=== PATIENT | female | born 1985 | race Caucasian/White ===

== ENCOUNTER 2019-04-19 12:49 | Outpatient (CLI) | payer BC, SELFPAY ==
--- NOTE | ~2019-04-19 | US_ITS ---
EXAMINATION: US pelvic complete w TV DATE: 04/19/2019 13:26 INDICATION: Displacement of intrauterine contraceptive the size Comparison:No prior studies for comparison. TECHNIQUE: Multiple transabdominal and endovaginal sonographic images of the pelvis performed. FINDINGS: The uterus measures 11.3 x 3.8 x 4.9 cm. IUD present in the endometrium. The endometrial co mplex measures 3 mm. The right ovary measures 2.5 x 1.9 x 2.8 cm and the left ovary measures 3.2 x 1.4 x 2.4 cm. There ar e small follicles in each ovary. There is no free fluid in the pelvis. There are no abnormal masses seen on either side. IMPRESSION: 1. Unremarkable pelvic ultrasound. IUD present in the endometrium. Reviewed, dictated and finalized at location B. [employer]
== END 2019-04-19 12:50 ==
LOC: MICIMG 12:50
PROVIDERS: Visit Provider Obstetrics & Gynecology
DX: T83.32XA Displacement of intrauterine contraceptive device, initial encounter (principal)
CPT/HCPCS: 76830; 76856

== ENCOUNTER → 2021-10-16 09:47 | Outpatient (CLI) | payer OTHER, SELFPAY ==
--- NOTE | ~2021-10-16 | XR_ITS ---
XR shoulder RT min 2V DATE: 10/16/2021 10:39 INDICATION: Right shoulder sprain TECHNIQUE: 4 views COMPARISON: None FINDINGS: No fracture or dislocation, periosteal reaction or bone destruction or abnormal soft tissue calcification. IMPRESSION: Negative right shoulder Reviewed, dictated and finalized at location B. IMPRESSION: Negative right shoulder
== END ==
PROVIDERS: PCP Physician Assistant
DX: S43.491A Other sprain of right shoulder joint, initial encounter (principal); X58.XXXA Exposure to other specified factors, initial encounter
CPT/HCPCS: 73030